=== PATIENT | male | born 1965 | race Caucasian/White ===

== ENCOUNTER → 2022-07-29 | Outpatient (CLI) | payer BC | LOC: M RAD 07:28 | DX: M51.26 Other intervertebral disc displacement, lumbar region (principal); E04.2 Nontoxic multinodular goiter; N28.9 Disorder of kidney and ureter, unspecified ==

== ENCOUNTER → 2022-08-19 | Outpatient (CLI) | payer BC ==
[~2022-08-19] MED LIST: ISOVUE-370 76% 100ML VIAL As Ordered ONE
== END ==
LOC: M RAD 09:04
PROVIDERS: ATTEND Family Medicine
DX: N28.1 Cyst of kidney, acquired (principal)
CPT/HCPCS: 74178; Q9967

== ENCOUNTER → 2024-09-17 | Outpatient (REF) | payer BC ==
[2024-09-17 17:13] LABS: BASO # 0.0 10^3/uL (0.0-0.2); BASO % 0.2 % (0.0-1.0); EOS # 0.3 10^3/uL (0.0-0.5); EOS % 3.6 % (0.0-3.0); LYMPH # 1.5 10^3/uL (1.5-5.0); LYMPH % 18.4 % (24.0-44.0); MONO # 1.2 10^3/uL (0.0-0.8); MONO % 14.4 % (2.0-8.0); NEUTROPHILS # 5.0 10^3/uL (1.5-8.5); NEUTROPHILS % 62.5 % (36.0-66.0); PLATELET COUNT, AUTOMATED 346 10^3/uL (150-450)
[2024-09-17 17:23] LABS: ERYTHROCYTE SEDIMENTATION RATE 54 mm/hr (0-20)
[2024-09-17 17:34] LABS: VANCOMYCIN RANDOM 11.4 UG/ML
[2024-09-17 17:35] LABS: ALT/SGPT 39 U/L (7.0-40); AST/SGOT 25 U/L (<34); C REACTIVE PROTEIN QUANTITATIV 1.56 MG/DL (<1.0); CALCIUM LEVEL 8.9 MG/DL (8.5-10.1); CARBON DIOXIDE LEVEL 25 MMOL/L (20-31); CHLORIDE LEVEL 102 MMOL/L (98-107); CREATININE FOR GFR 0.70 MG/DL (0.70-1.30); GLOMERULAR FILTRATION RATE > 90.0 (>56); POTASSIUM SERUM 3.8 MMOL/L (3.5-5.1); SODIUM LEVEL 140 MMOL/L (136-145)
== END ==
LOC: M LAB REF 11:03
PROVIDERS: ATTEND Internal Medicine Infectious Disease
DX: G40.89 Other seizures (principal)

== ENCOUNTER → 2024-09-24 | Outpatient (REF) | payer BC ==
[2024-09-24 12:16] LABS: BASO # 0.0 10^3/uL (0.0-0.2); BASO % 0.6 % (0.0-1.0); EOS # 0.2 10^3/uL (0.0-0.5); EOS % 3.1 % (0.0-3.0); LYMPH # 1.2 10^3/uL (1.5-5.0); LYMPH % 18.7 % (24.0-44.0); MONO # 1.0 10^3/uL (0.0-0.8); MONO % 14.8 % (2.0-8.0); NEUTROPHILS # 4.0 10^3/uL (1.5-8.5); NEUTROPHILS % 61.6 % (36.0-66.0); PLATELET COUNT, AUTOMATED 395 10^3/uL (150-450)
[2024-09-24 12:21] LABS: ERYTHROCYTE SEDIMENTATION RATE 47 mm/hr (0-20)
[2024-09-24 12:39] LABS: VANCOMYCIN RANDOM 10.6 UG/ML
[2024-09-24 12:40] LABS: ALT/SGPT 36 U/L (7.0-40); AST/SGOT 23 U/L (<34); C REACTIVE PROTEIN QUANTITATIV 1.64 MG/DL (<1.0); CALCIUM LEVEL 8.6 MG/DL (8.5-10.1); CARBON DIOXIDE LEVEL 23 MMOL/L (20-31); CHLORIDE LEVEL 102 MMOL/L (98-107); CREATININE FOR GFR 0.78 MG/DL (0.70-1.30); GLOMERULAR FILTRATION RATE > 90.0 (>56); POTASSIUM SERUM 4.1 MMOL/L (3.5-5.1); SODIUM LEVEL 137 MMOL/L (136-145)
== END ==
LOC: M LAB REF 11:58
PROVIDERS: ATTEND Internal Medicine Infectious Disease
DX: T84.59XS Infection and inflammatory reaction due to other internal joint prosthesis, sequela (principal)

== ENCOUNTER → 2024-10-01 | Outpatient (REF) | payer BC ==
[2024-10-01 15:14] LABS: BASO # 0.0 10^3/uL (0.0-0.2); BASO % 0.2 % (0.0-1.0); EOS # 0.4 10^3/uL (0.0-0.5); EOS % 7.4 % (0.0-3.0); LYMPH # 1.4 10^3/uL (1.5-5.0); LYMPH % 29.4 % (24.0-44.0); MONO # 0.4 10^3/uL (0.0-0.8); MONO % 8.2 % (2.0-8.0); NEUTROPHILS # 2.6 10^3/uL (1.5-8.5); NEUTROPHILS % 54.0 % (36.0-66.0); PLATELET COUNT, AUTOMATED 410 10^3/uL (150-450)
[2024-10-01 15:42] LABS: ALT/SGPT 32 U/L (7.0-40); AST/SGOT 23 U/L (<34); C REACTIVE PROTEIN QUANTITATIV 1.69 MG/DL (<1.0); CALCIUM LEVEL 9.1 MG/DL (8.5-10.1); CARBON DIOXIDE LEVEL 23 MMOL/L (20-31); CHLORIDE LEVEL 102 MMOL/L (98-107); CREATININE FOR GFR 0.66 MG/DL (0.70-1.30); GLOMERULAR FILTRATION RATE > 90.0 (>56); POTASSIUM SERUM 4.4 MMOL/L (3.5-5.1); SODIUM LEVEL 138 MMOL/L (136-145)
[2024-10-01 16:24] LABS: ERYTHROCYTE SEDIMENTATION RATE 35 mm/hr (0-20)
== END ==
LOC: M LAB REF 14:30
PROVIDERS: ATTEND Internal Medicine Infectious Disease
DX: Z13.9 Encounter for screening, unspecified (principal)

== ENCOUNTER → 2024-10-08 | Outpatient (REF) | payer BC ==
[2024-10-08 13:11] LABS: BASO # 0.0 10^3/uL (0.0-0.2); BASO % 0.6 % (0.0-1.0); EOS # 0.2 10^3/uL (0.0-0.5); EOS % 4.4 % (0.0-3.0); LYMPH # 1.1 10^3/uL (1.5-5.0); LYMPH % 22.4 % (24.0-44.0); MONO # 0.9 10^3/uL (0.0-0.8); MONO % 18.4 % (2.0-8.0); NEUTROPHILS # 2.6 10^3/uL (1.5-8.5); NEUTROPHILS % 54.0 % (36.0-66.0); PLATELET COUNT, AUTOMATED 350 10^3/uL (150-450)
[2024-10-08 13:31] LABS: ERYTHROCYTE SEDIMENTATION RATE 32 mm/hr (0-20)
[2024-10-08 13:37] LABS: C REACTIVE PROTEIN QUANTITATIV < 0.50 MG/DL (<1.0)
[2024-10-08 13:38] LABS: ALT/SGPT 52 U/L (7.0-40); AST/SGOT 22 U/L (<34); CALCIUM LEVEL 9.0 MG/DL (8.5-10.1); CARBON DIOXIDE LEVEL 22 MMOL/L (20-31); CHLORIDE LEVEL 102 MMOL/L (98-107); CREATININE FOR GFR 0.65 MG/DL (0.70-1.30); GLOMERULAR FILTRATION RATE > 90.0 (>56); POTASSIUM SERUM 4.7 MMOL/L (3.5-5.1); SODIUM LEVEL 135 MMOL/L (136-145)
== END ==
LOC: M LAB REF 11:58
PROVIDERS: ATTEND Internal Medicine Infectious Disease
DX: T84.59XS Infection and inflammatory reaction due to other internal joint prosthesis, sequela (principal)

== ENCOUNTER → 2024-10-15 | Outpatient (REF) | payer BC ==
[2024-10-15 18:17] LABS: BASO # 0.1 10^3/uL (0.0-0.2); BASO % 1.6 % (0.0-1.0); EOS # 0.3 10^3/uL (0.0-0.5); EOS % 7.3 % (0.0-3.0); LYMPH # 1.1 10^3/uL (1.5-5.0); LYMPH % 29.5 % (24.0-44.0); MONO # 1.3 10^3/uL (0.0-0.8); MONO % 34.1 % (2.0-8.0); NEUTROPHILS # 1.0 10^3/uL (1.5-8.5); NEUTROPHILS % 27.2 % (36.0-66.0); PLATELET COUNT, AUTOMATED 341 10^3/uL (150-450)
[2024-10-15 18:29] LABS: ERYTHROCYTE SEDIMENTATION RATE 29 mm/hr (0-20)
[2024-10-15 18:37] LABS: ALT/SGPT 29 U/L (7.0-40); AST/SGOT 15 U/L (<34); C REACTIVE PROTEIN QUANTITATIV 1.00 MG/DL (<1.0); CALCIUM LEVEL 9.3 MG/DL (8.5-10.1); CARBON DIOXIDE LEVEL 23 MMOL/L (20-31); CHLORIDE LEVEL 102 MMOL/L (98-107); CREATININE FOR GFR 0.65 MG/DL (0.70-1.30); GLOMERULAR FILTRATION RATE > 90.0 (>56); POTASSIUM SERUM 4.3 MMOL/L (3.5-5.1); SODIUM LEVEL 135 MMOL/L (136-145)
== END ==
LOC: M LAB REF 17:43
PROVIDERS: ATTEND Internal Medicine Infectious Disease
DX: Z00.00 Encounter for general adult medical examination without abnormal findings (principal)

== ENCOUNTER → 2024-10-21 | Outpatient (REF) | payer BC ==
[2024-10-21 12:22] LABS: BASO # 0.0 10^3/uL (0.0-0.2); BASO % 0.7 % (0.0-1.0); EOS # 0.2 10^3/uL (0.0-0.5); EOS % 3.2 % (0.0-3.0); LYMPH # 1.3 10^3/uL (1.5-5.0); LYMPH % 23.2 % (24.0-44.0); MONO # 1.3 10^3/uL (0.0-0.8); MONO % 22.0 % (2.0-8.0); NEUTROPHILS # 2.9 10^3/uL (1.5-8.5); NEUTROPHILS % 50.0 % (36.0-66.0); PLATELET COUNT, AUTOMATED 388 10^3/uL (150-450)
[2024-10-21 12:28] LABS: ERYTHROCYTE SEDIMENTATION RATE 61 mm/hr (0-20)
[2024-10-21 12:46] LABS: ALT/SGPT 25 U/L (7.0-40); AST/SGOT 14 U/L (<34); C REACTIVE PROTEIN QUANTITATIV 2.31 MG/DL (<1.0); CALCIUM LEVEL 9.3 MG/DL (8.5-10.1); CARBON DIOXIDE LEVEL 23 MMOL/L (20-31); CHLORIDE LEVEL 101 MMOL/L (98-107); CREATININE FOR GFR 0.69 MG/DL (0.70-1.30); GLOMERULAR FILTRATION RATE > 90.0 (>56); POTASSIUM SERUM 4.6 MMOL/L (3.5-5.1); SODIUM LEVEL 135 MMOL/L (136-145)
== END ==
LOC: M LAB REF 11:34
PROVIDERS: ATTEND Internal Medicine Infectious Disease
DX: T84.59XS Infection and inflammatory reaction due to other internal joint prosthesis, sequela (principal)

== ENCOUNTER → 2024-10-24 | Outpatient (REF) | payer BC ==
[2024-10-24 11:44] LABS: BASO # 0.0 10^3/uL (0.0-0.2); BASO % 0.4 % (0.0-1.0); EOS # 0.4 10^3/uL (0.0-0.5); EOS % 5.4 % (0.0-3.0); LYMPH # 1.2 10^3/uL (1.5-5.0); LYMPH % 16.3 % (24.0-44.0); MONO # 1.4 10^3/uL (0.0-0.8); MONO % 19.7 % (2.0-8.0); NEUTROPHILS # 3.9 10^3/uL (1.5-8.5); NEUTROPHILS % 55.5 % (36.0-66.0); PLATELET COUNT, AUTOMATED 333 10^3/uL (150-450)
[2024-10-24 11:57] LABS: ERYTHROCYTE SEDIMENTATION RATE 55 mm/hr (0-20)
[2024-10-24 12:16] LABS: VANCOMYCIN RANDOM < 3.0 UG/ML
[2024-10-24 12:18] LABS: ALT/SGPT 21 U/L (7.0-40); AST/SGOT 14 U/L (<34); C REACTIVE PROTEIN QUANTITATIV 2.03 MG/DL (<1.0); CALCIUM LEVEL 8.4 MG/DL (8.5-10.1); CARBON DIOXIDE LEVEL 22 MMOL/L (20-31); CHLORIDE LEVEL 103 MMOL/L (98-107); CREATININE FOR GFR 0.59 MG/DL (0.70-1.30); GLOMERULAR FILTRATION RATE > 90.0 (>56); POTASSIUM SERUM 4.7 MMOL/L (3.5-5.1); SODIUM LEVEL 133 MMOL/L (136-145)
== END ==
LOC: M LAB REF 11:26
PROVIDERS: ATTEND Internal Medicine Infectious Disease
DX: T84.59XS Infection and inflammatory reaction due to other internal joint prosthesis, sequela (principal)